=== PATIENT | female | born 1960 | race Caucasian/White ===

== ENCOUNTER 2017-08-20 03:08 | Emergency (ER) | payer OTHER ==
[~2017-08-20] VITALS: Ht 152.4 cm; Wt 58.5 kg
[2017-08-20 03:15] VITALS: Ht 152.4 cm; Wt 58.5 kg
--- NOTE | 2017-08-20 04:11 | ERD ---
ER Documentation Chief Complaint Date/Time DATE: 08/20/17 TIME: 04:09 Chief Complaint R wrist injury after trying to break her fall yesterday HPI Patient is a 57-year-old female who presents with sudden onset, constant, moderate pain to right wrist after tripping on a sidewalk in landing on an outstretched hand. She is right-hand dominant. She denies hitting her head or injuring any other part of her body. She denies numbness or tingling in her fingers. ROS All systems reviewed and are negative except as per history of present illness. Medications Home Meds Active Scripts Tramadol HCl (Tramadol HCl) 50 Mg Tablet, 50 MG PO Q4 Y for PAIN, #20 TAB Prov:ZENAIDA MELGAR MD 08/20/17 Allergies Allergies: Coded Allergies: No Known Allergy (Unverified , 08/20/17) PMhx/Soc Past medical history: Hypertension Past surgical history: 2 Social history: Denies tobacco or alcohol History of Surgery: Yes () Hx Cardiac Disorders: Yes (HTN) Hx Alcohol Use: Yes Hx Substance Use: Yes Hx Tobacco Use: Yes Smoking Status: Never smoker FmHx Family History: No coronary disease, No diabetes Physical Exam Vitals Vital Signs Date Time Temp Pulse Resp B/P Pulse Ox O2 Delivery O2 Flow Rate FiO2 08/20/17 05:46 65 16 135/72 99 Room Air 08/20/17 03:15 98.1 71 20 190/94 99 Physical Exam Const: Alert, no acute distress Head: Atraumatic Eyes: Normal Conjunctiva, No pallor, no icterus ENT: Normal External Ears, Nose and Mouth. Neck: Full range of motion..~ No meningismus. No midline tenderness Resp: Clear to auscultation bilaterally Cardio: Regular rate and rhythm, no murmurs Abd: Soft, non tender, non distended. Skin: No petechiae or rashes Back: No midline or flank tenderness Ext: No cyanosis, or edema. Tenderness to right wrist with mild deformity. Strength and sensation intact in all digits. Skin intact. No tenderness at the elbow or forearm. No tenderness in the hand. Compartments soft.2 second cap refill all digits. Neur: Awake and alert Psych: Normal Mood and Affect Results 24 hrs Current Medications Medications (Trade) Dose Ordered Sig/Jonathan Route PRN Reason Start Time Stop Time Status Last Admin Dose Admin Tramadol HCl (Ultram) 50 mg ONCE ONCE PO 08/20/17 04:30 08/20/17 04:31 DC 08/20/17 04:15 Procedures/MDM MDM: Patient is a 57-year-old female who presents to the ER 12 hours after a ground-level fall after tripping and landing on an outstretched hand. She has pain to her right wrist. She denies other injury and has no other findings of injury. She is neurovascularly intact. She is right-hand dominant. X-ray reveals a impacted distal radius fracture. She was placed in a volar splint by nuclear test technician and advised to follow-up with orthopedic surgery. She had adequate analgesia with tramadol and will be prescribed provided with a prescription for home use. Splint Assessment: Neurovascularly intact post splint placement with good fit. Departure Diagnosis: Primary Impression: Distal radius fracture, right Encounter type: initial encounter Fracture type: closed Fracture morphology : unspecified fracture morphology Qualified Code: S52.501A - Closed fracture of distal end of right radius, unspecified fracture morphology, initial encounter Condition: ZENAIDA Cruz MD Aug 20, 2017 04:11
[2017-08-20] MEDS ORDERED: traMADol 50 MG TAB PO ONE (04:30)
--- NOTE | 2017-08-20 04:44 | RADRPT ---
PROCEDURE: Right wrist x-ray CLINICAL INDICATION: injury TECHNIQUE: AP, lateral and oblique views of the wrist were obtained. COMPARISON: None FINDINGS: There is normal mineralization. Impacted, distal radial fracture is identified. Small cortical fragment is seen dorsally. The joint spaces are normal. There is soft tissue swelling. IMPRESSION: Impacted distal radial fracture Physician Sen Date Time Electronically viewed and signed by Physician Sen on 08/20/2017 04:44 CS/
[2017-08-20] MEDS ORDERED: TRAM50TA2 PO (05:27)
[2017-08-20 05:46] VITALS: BP 135/72; PULSE 65; RESP 16
== END 2017-08-20 05:47 | disposition home or self-care (01) ==
LOC: FTE 03:08
DX: S52.501A Unspecified fracture of the lower end of right radius, initial encounter for closed fracture (principal); I10 Essential (primary) hypertension; W18.49XA Other slipping, tripping and stumbling without falling, initial encounter; Y92.9 Unspecified place or not applicable
CPT/HCPCS: 29125; 73110; Z7502; Z7610

== ENCOUNTER 2017-11-12 02:36 | Emergency (ER) | payer OTHER ==
[~2017-11-12] VITALS: Ht 152.4 cm; Wt 58.1 kg
[~2017-11-12 02:36] MED LIST: TRAM50TA2 PO
[2017-11-12 02:44] VITALS: Ht 152.4 cm; Wt 58.1 kg
[2017-11-12] MEDS ORDERED: BENA10TA48 PO (03:51)
[2017-11-12] MEDS ORDERED: METO-448 PO (03:52)
[2017-11-12] MEDS ORDERED: HYDR25TA6 PO (03:52)
[2017-11-12] MEDS ORDERED: KETOROLAC 60 MG INJ IM STA (04:10)
[2017-11-12] MEDS ORDERED: UDROBDM PO (05:46)
[2017-11-12] MEDS ORDERED: HYDR-906 PO (05:46)
[2017-11-12] MEDS ORDERED: AZIT250T94 PO (05:46)
[2017-11-12] MEDS ORDERED: CEPH-443 PO (05:46)
[2017-11-12] MEDS ORDERED: NAPR-688 PO (05:46)
--- NOTE | 2017-11-12 05:52 | ERD ---
ER Documentation Chief Complaint Chief Complaint cough x 4 days. also c/o left arm lac from traNativeflow bin yesterday HPI This 57-year-old female presents with 4 days of a cough with rib pain only when she coughs. Also has some upper airway congestion. Denies significant shortness of breath. Has had an episode of posttussive emesis. So has a left dorsal forearm laceration from yesterday that she would like looked at. She was change in her garbage when she has scraped along the can. ROS All systems reviewed and are negative except as per history of present illness. Medications Home Meds Active Scripts Naproxen* (Naproxen*) 500 Mg Tablet, 500 MG PO BID, #14 TAB Prov:CALVINAMANDA DO 11/12/17 Cephalexin* (Keflex*) 500 Mg Capsule, 500 MG PO QID for 7 Days, CAP Prov:AMANDA SIMPSON DO 11/12/17 Azithromycin* (Zithromax*) 250 Mg Tablet, 250 MG PO .ZPACK DIRECTED, #6 TAB TAKE 500 MG (2 TABS) THE FIRST DAY THEN 250 MG (1 TAB) DAYS 2-5 Prov:CALVINAMANDA DO 11/12/17 Hydrocodone/Acetaminophen ([place] 5-325 Tablet) 1 Each Tablet, 1 EACH PO Q6 for PAIN, #14 TAB Prov:CALVINAMANDA DO 11/12/17 Guaifenesin-Dextromethorphan* (Robitussin* DM) 100MG/10MG/5ML Syrup, 5 ML PO Q4H Y for COUGH, #120 ML Prov:CALVINAMANDA DO 11/12/17 Tramadol HCl (Tramadol HCl) 50 Mg Tablet, 50 MG PO Q4 Y for PAIN, #20 TAB Prov:ZENAIDA MELGAR MD 08/20/17 Reported Medications Hydrochlorothiazide* (Hydrochlorothiazide*) 25 Mg Tab, 25 MG PO DAILY, #30 TAB 11/12/17 Metoprolol Tartrate* (Lopressor*) 25 Mg Tab, 25 MG PO BID, #60 TAB 11/12/17 Benazepril Hcl* (Benazepril Hcl*) 10 Mg Tablet, 10 MG PO DAILY, #30 TAB 11/12/17 Allergies Allergies: Coded Allergies: No Known Allergy (Unverified , 11/12/17) PMhx/Soc History of Surgery: No Anesthesia Reaction: No Hx Neurological Disorder: No Hx Respiratory Disorders: No Hx Cardiac Disorders: Yes (HTN) Hx Psychiatric Problems: No Hx Miscellaneous Medical Probl: Yes (HTN) Hx Alcohol Use: No Hx Substance Use: No Hx Tobacco Use: No Smoking Status: Never smoker Physical Exam Vitals Vital Signs Date Time Temp Pulse Resp B/P Pulse Ox O2 Delivery O2 Flow Rate FiO2 11/12/17 02:44 98.5 80 20 179/92 16 Physical Exam Const: [] Mild distress Head: Atraumatic Eyes: Normal Conjunctiva ENT: Normal External Ears, Nose and Mouth. Resp: Clear to auscultation bilaterally, coughs on exam Cardio: Regular rate and rhythm, no murmurs Abd: Soft, non tender, non distended. Normal bowel sounds Ext: No cyanosis, or edema, left forearm with 1 laceration is gaping open approximately 3 cm long by 1.5 cm wide. 2 smaller lacerations next to it that are superficial and not open. Results 24 hrs Current Medications Medications (Trade) Dose Ordered Sig/Jonathan Route PRN Reason Start Time Stop Time Status Last Admin Dose Admin Ketorolac Tromethamine (Toradol) 60 mg ONCE STAT IM 11/12/17 04:10 11/12/17 04:11 DC 11/12/17 04:21 Procedures/MDM Acute bronchitis and old laceration. Patient was given Toradol 60 mg IM for pain. Laceration repair with Steri-Strips. She is going to be discharged with Keflex for the dirty, old laceration. Also discharging her with azithromycin for her bronchitis and Robitussin-DM cough syrup. Also giving her a few [place] for pain and a few naproxen. I have low suspicion for serious bacterial infection like pneumonia. Primary care follow-up in 2 3 days and strict return precautions Laceration repair note, 3 cm laceration to left forearm: Suturing was not performed secondary to old laceration, laceration was gaping and needed repair for partial closure. Area was cleaned copiously with normal saline. Used Steri -Strips to half approximate the edges of the wound without full closure. Patient taught the procedure with no complications. Departure Diagnosis: Primary Impression: Laceration Additional Impression: Bronchitis, acute Condition: Stable Patient Instructions: Bronchitis, Antiobiotic Treatment (Adult), Laceration, All Additional Instructions: Call your primary care doctor TOMORROW for an appointment during the next 2-3 days.See the doctor sooner or return here if your condition worsens before your appointment time. AMANDA SIMPSON DO Nov 12, 2017 05:52
== END 2017-11-12 06:38 | disposition home or self-care (01) ==
LOC: FTE 02:36
DX: S51.812A Laceration without foreign body of left forearm, initial encounter (principal); J20.9 Acute bronchitis, unspecified; I10 Essential (primary) hypertension; W31.82XA Contact with other commercial machinery, initial encounter; Y92.9 Unspecified place or not applicable
CPT/HCPCS: J1885; Z7502